=== PATIENT | male | born 1970 | race Caucasian/White ===

== ENCOUNTER 2017-05-19 20:00 | Emergency (ER) | payer SELFPAY ==
[2017-05-19 20:09] VITALS: BMI 41.0
--- NOTE | 2017-05-19 20:30 | DR.GENAD ---
HPI - Complaint/Symptoms Chief Complaint Doctors Comments: Patient denies trauma. Wears contacts. Chief Complaint:: Patient reports he started having right eye pain earlier today. Patient reports it feels like his eyeball is swollen. Patient reports he placed Visine eye drops in his eyes and laid down. When he got up he states the pain was unbearable. Self Treatment fo Chief Complaint: Motrin 800mg, Methadone 20mg - Source History Provided: Patient - Mode of Arrival Mode of Arrival: Ambulatory - Timing Onset of Chief Complaint: 05/19/17 PMH - PMH Past Medical History: Yes Past Medical History: Hypertension Past Surgical History: Yes Past Surgical History Comment: 4 back surgies, hip, right shoulder - Family History History of Family Medical Conditions: No - Social History Type of Tobacco Use: Cigarettes Alcohol Use: None Lives With: Family Lives Where: Home - infectious screening In the last 2 months have you had wt loss of >10#?: NO Have you had fever, night sweats or hemotysis?: No Have you traveled outside the country in the last 6 months?: No Isolation: Standard ROS - Review of Systems Eyes: No Symptoms Reported ENTM: No Symptoms Reported Respiratoy: No Symptoms Reported Cardiovascular: No Symptoms Reported Gastrointestinal/Abdominal: No Symptoms Reported Genitourinary: No Symptoms Reported Neurological: No Symptoms Reported Musculoskeletal: No Symptoms Reported Integumentary: No Symptoms Reported Hematologic/Lymphatic: No Symptoms Reported Endocrine: No Symptoms Reported Psychiatric: No Symptoms Reported All Other Systems: Reviewed and Negative PE - Vital Signs Vitals: Temperature 98.0 F Pulse Rate 100 Respiratory Rate 20 Blood Pressure 184/105 O2 Sat by Pulse Oximetry 97 - General General Appearance: Alert, In Distress - Head Head Exam: Normal Inspection, Atraumatic - Eyes Eye exam: PERRL, EOMI, Other (right eye, cloudy, admits to pain, no FB noted w/ p topical anesthtic drops.) - ENT ENT Exam: Normal Exam External Ear Exam: Normal External Inspection TM/Canal Exam: Bilateral Normal Nose Exam: Normal Nose Exam Mouth Exam: Normal Inspection Throat Exam: Normal Inspection - Neck Neck Exam: Normal Inspection, Full ROM - Chest Chest Inspection: Normal Inspection - Respiratory Respiratory Exam: Normal Lung Sounds Bilat Respiratory Exam: Bilateral Clear to Auscultation - Cardiovascular Cardiovascular Exam: Regular Rate, Normal Rhythm - Abdominal Exam Abdominal Exam: Normal Inspection, Normal Bowel Sounds Abdominal Tenderness: negative: RUQ, RLQ, LUQ, LLQ, Epigastrium, Suprapubic, Diffuse, Mild, Moderate, Severe, Other - Extremities Extremities Exam: Normal Inspection - Back Back Exam: Normal Inspection, Full ROM - Neurologic Neurological Exam: Alert, Oriented X3, CN II-XII Intact - Psychiatric Psychiatric Exam: Normal Affect, Normal Mood - Skin Skin Exam: Warm, Dry, Intact Course - Treatment Treatment: Tetracaine, fluorocene,gentamycin topical - Reevaluation 1st: Improved - Diagnosis Discharge Problem: Corneal abnormality - Discharge Plan Condition: Stable - Follow ups/Referrals Follow ups/Referrals: NFD,None [Primary Care Provider] - 3 days - Instructions
[2017-05-19] MEDS ORDERED: FUL-GLO STRIP RIGHTEYE ONE (20:32)
[2017-05-19] MEDS ORDERED: TETRACAINE HCL AFFEYE ONE (20:32)
[2017-05-19] MEDS ORDERED: FUL-GLO STRIP ONE (20:32)
[2017-05-19] MEDS ORDERED: TETRACAINE HCL ONE (20:32)
[2017-05-19] MEDS ORDERED: GENTAMICIN SULF (OPHTH) AFFEYE ONE (20:42)
[2017-05-19] MEDS ORDERED: GENTAK OPHTH OINT ONE (20:46)
[2017-05-19 21:10] VITALS: BP 153/89
== END 2017-05-19 21:11 | disposition home or self-care (01) ==
LOC: ER 20:00
DX: H18.899 Other specified disorders of cornea, unspecified eye (principal)
CPT/HCPCS: 99282